=== PATIENT | female | born 1960 | race Caucasian/White ===

== ENCOUNTER 2019-12-04 12:26 | Emergency (ER) | payer MEDICARE ==
[2019-12-04 12:46] VITALS: BP 143/89
--- NOTE | 2019-12-04 13:42 | UC ---
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 dropped board on left great toe pain with wt bearing pain with movement 2. splinter right index finger - History of Current Complaint Chief Complaint: UCLowerExtremity Stated Complaint: L BIG TOE INJURY/L INDEX FINGER CONCERN Time Seen by Provider: 12/04/19 12:34 Hx Obtained From: Patient Onset/Duration: Sudden Onset Severity Initially: Moderate Severity Currently: Moderate Pain Intensity: 7 Pain Scale Used: 0-10 Numeric Aggravating Factor(s): Standing, Ambulation Alleviating Factor(s): Rest, Elevation Able to Bear Weight: Yes Feet (Multiple View): 1 - tender/swollen/skin intact/no subungual hematoma - Allergies/Home Medications Allergies/Adverse Reactions: Allergies Allergy/AdvReac Type Severity Reaction Status Date / Time cephalexin [From Keflex] Allergy Shortness Verified 12/04/19 12:40 of Breath codeine Allergy GI Upset Verified 12/04/19 12:40 Home Medications: Home Medications Ramipril 10 mg PO DAILY 08/06/14 [History Confirmed 12/04/19] Famotidine TAB* [Pepcid 20 MG TAB*] 20 mg PO DAILY 12/04/19 [History Confirmed 12/04/19] Vitamin B Complex CAP* [B Complex CAP*] 1 cap DAILY 12/04/19 [History Confirmed 12/04/19] PMH/Surg Hx/FS Hx/Imm Hx Previously Healthy: Yes Endocrine History: Diabetes - pre Cardiovascular History: Hypertension Neurological History: CVA - Surgical History Surgical History: Yes Surgery Procedure, Year, and Place: Aneursym repair x 2. Tubal. R shoulder repair dislocation with pin placement - Social History Alcohol Use: Rare Substance Use Type: None Smoking Status (MU): Heavy Every Day Tobacco Smoker Type: Cigarettes Amount Used/How Often: 1 PPD Length of Time of Smoking/Using Tobacco: 41 years Review of Systems All Other Systems Reviewed And Are Negative: Yes Constitutional: Positive: Negative Skin: Positive: Other - splinter Eyes: Positive: Negative ENT: Positive: Negative Respiratory: Positive: Negative Cardiovascular: Positive: Negative Gastrointestinal: Positive: Negative Genitourinary: Positive: Negative Motor: Positive: Negative Neurovascular: Positive: Negative Musculoskeletal: Positive: Other: - see HPI Neurological/Mental Status: Positive: Negative Psychological: Positive: Negative Physical Exam Triage Information Reviewed: Yes Appearance: Well-Appearing, No Pain Distress, Well-Nourished Vital Signs: Initial Vital Signs Temp 98 F 12/04/19 12:34 Pulse 84 12/04/19 12:34 Resp 16 12/04/19 12:34 BP 143/89 12/04/19 12:34 Pulse Ox 99 12/04/19 12:34 Vital Signs Reviewed: Yes Eyes: Positive: Conjunctiva Clear ENT: Positive: Hearing grossly normal. Negative: Nasal congestion, Nasal drainage, Trismus, Muffled voice, Hoarse voice Dental Exam: Normal Neck: Positive: Supple, Nontender Respiratory: Positive: Lungs clear, Normal breath sounds, No respiratory distress, No accessory muscle use Cardiovascular: Positive: RRR, No Murmur Musculoskeletal: Positive: Other: - see image Psychological Exam: Normal Skin Exam: Other - superficial splinter volar aspect RIF PIP Procedures - Procedure Summary Procedure Summary: FB removal RIGHT INDEX FINGER Sterile prep minute superficial splinter removed from finger teased out atraumatically with an 18 g needle bandaid applied Diagnostics - Radiology No standard instances Radiology Interpretation Completed By: Radiologist Summary of Radiographic Findings: Mild DJD/ no fx Lower Extremity Course/Dx - Differential Dx/Diagnosis Provider Diagnosis: Contusion of left great toe without damage to nail, Splinter of finger Discharge ED - Sign-Out/Discharge Documenting (check all that apply): Patient Departure All imaging exams completed and their final reports reviewed: Yes - Discharge Plan Condition: Stable Disposition: HOME Patient Education Materials: Soft Tissue Foreign Body (ED), Foot Contusion (ED) , Post Surgical Shoe (ED) Referrals: Charito Hyman [Primary Care Provider] - If Needed Additional Instructions: recheck in 2 weeks if not back to normal elevate ice tylenol - Billing Disposition and Condition Condition: STABLE Disposition: Home
== END 2019-12-04 13:51 | disposition home or self-care (01) ==
LOC: UCCORT 12:26
DX: S90.112A Contusion of left great toe without damage to nail, initial encounter (principal); S60.450A Superficial foreign body of right index finger, initial encounter; W20.8XXA Other cause of strike by thrown, projected or falling object, initial encounter; Y92.9 Unspecified place or not applicable; R73.03 Prediabetes; I10 Essential (primary) hypertension; Z88.1 Allergy status to other antibiotic agents; Z88.5 Allergy status to narcotic agent; F17.210 Nicotine dependence, cigarettes, uncomplicated
CPT/HCPCS: 99212; G0463